=== PATIENT | female | born 1950 | race Caucasian/White ===

== ENCOUNTER → 2019-08-11 | Outpatient (CLI) | payer OTHER ==
--- NOTE | 2019-08-11 11:20 | 2DMMODE ---
[facility] [employer] [address] 2 D/M-MODE ECHOCARDIOGRAM Name: JESSICACHRIS Room #: REG [facility] [id number] Admission: 08/11/19 Attend Phys: Scot Gordon Discharge: Date of : 54 Report #: [id number] THIS REPORT FOR: //name// APPROVED REPORT Study performed: 08/11/2019 10:40:26 EXAM: Comprehensive 2D, Doppler, and color-flow Echocardiogram Patient Location: Echo lab Status: routine BSA: 1.82 HR: 86 bpm BP: 132/70 mmHg Rhythm: NSR Other Information Study Quality: Good Indications Diabetes Hypertension/HDD HLD 2D Dimensions RVDd: 34.61 mm IVSd: 9.68 (7-11mm) LVOT Diam: 20.50 (18-24mm) LVDd: 39.94 mm PWd: 9.18 (7-11mm) Ascending Ao: 32.55 (22-36mm) LVDs: 26.20 (25-40mm) Aortic Root: 33.15 mm IVC: 15.00 mm Volumes Left Atrial Volume (Systole) Single Plane 4CH: 22.37 mL Single Plane 2CH: 29.46 mL LA ESV Index: 17.00 mL/m2 Aortic Valve AoV Peak Yinka.: 1.21 m/s AO Peak Gr.: 5.90 mmHg LVOT Max P.16 mmHg LVOT Max V: 1.14 m/s JONH Vmax: 3.08 cm2 Mitral Valve E/A Ratio: 0.8 [facility] [address] [place] [address] 2 D/M-MODE ECHOCARDIOGRAM Name: CHRIS LOPEZ Room #: REG FREDI Quiroga#: [id number] Admission: 08/11/19 Attend Phys: Scot Gordon Discharge: Date of : 54 Report #: [id number] MV Decel. Time: 167.45 ms MV E Max Yinka.: 0.78 m/s MV A Yinka.: 1.01 m/s MV PHT: 48.56 ms IVRT: 89.97 ms Pulmonary Valve PV Peak Yinka.: 1.23 m/s PV Peak Gr.: 6.10 mmHg Pulmonary Vein P Vein S: 0.75 m/s P Vein A: 0.35 m/s P Vein D: 0.57 m/s P Vein A Dur.: 107.3 msec P Vein S/D Ratio: 1.32 Tricuspid Valve TR Peak Yinka.: 2.59 m/s RAP Estimate: 5.00 mmHg TR Peak Gr.: 26.78 mmHg PA Pressure: 32.00 mmHg Left Ventricle The left ventricle is normal size. There is normal left ventricular wall thickness. The left ventricular systolic function is normal. The left ventricular ejection fraction is within the normal range. LVEF is 60-65%. Mild diastolic dysfunction is present (impaired relaxation pattern). Right Ventricle The right ventricle is normal size. The right ventricular systolic function is normal. Atria The left atrium size is normal. The right atrium size is normal. Aortic Valve The aortic valve is normal in structure. No aortic regurgitation is present. There is no aortic valvular stenosis. Mitral Valve The mitral valve is normal in structure. There is no mitral valve regurgitation noted. No evidence of mitral valve stenosis. Tricuspid Valve The tricuspid valve is normal in structure. Moderate tricuspid regurgitation. PAP is 32 mmHg. [facility] [place] [address] 2 D/M-MODE ECHOCARDIOGRAM Name: LOPEZCHRIS Room #: REG Junaid#: [id number] Admission: 08/11/19 Attend Phys: Scot Gordon Discharge: Date of : 54 Report #: [id number] Pulmonic Valve The pulmonary valve is normal in structure. Mild pulmonic regurgitation. Great Vessels The aortic root is normal in size. IVC is normal in size and collapses >50% with inspiration. Pericardium There is no pericardial effusion. <Conclusion> The left ventricle is normal size. LVEF is 60-65%. The aortic valve is normal in structure. The mitral valve is normal in structure. The tricuspid valve is normal in structure. Moderate tricuspid regurgitation. PAP is 32 mmHg. The pulmonary valve is normal in structure. Mild pulmonic regurgitation. There is no pericardial effusion. <ELECTRONICALLY SIGNED> By: Scot Banda MD 08/11/19 [id number] Scot Banda MD /INF
== END ==
LOC: NUC 08:06
DX: I36.1 Nonrheumatic tricuspid (valve) insufficiency (principal); E11.9 Type 2 diabetes mellitus without complications; I10 Essential (primary) hypertension; E78.5 Hyperlipidemia, unspecified; Z79.899 Other long term (current) drug therapy; Z88.8 Allergy status to other drugs, medicaments and biological substances; Z88.0 Allergy status to penicillin